=== PATIENT | female | born 1950 | race Caucasian/White ===

== ENCOUNTER → 2018-12-30 09:35 | Outpatient (CLI) | payer MEDICARE, OTHER, SELFPAY ==
--- NOTE | 2018-12-30 | DI.MG.S_ITS ---
BILATERAL DIGITAL SCREENING MAMMOGRAM 3D/2D WITH CAD: 12/30/2018 CLINICAL: Routine screening. Family history of breast cancer. Comparison is made to exams dated: 12/25/2017 mammogram, 12/13/2016 mammogram, 11/23/2015 mammogram, and 11/08/2014 mammogram - [facility]. The tissue of both breasts is heterogeneously dense. This may lower the sensitivity of mammography. Current study was also evaluated with a Computer Aided Detection (CAD) system. There is a mole marker on the right breast. No significant masses, calcifications, or other findings are seen in either breast. There has been no significant interval change. IMPRESSION: NEGATIVE There is no mammographic evidence of malignancy. A 1 year screening mammogram is recommended. This exam was interpreted at Station ID: [id number]. NOTE: For mammograms, a report in lay terms will be sent to the patient. Approximately 15% of breast malignancies will not be visualized mammographically. In the management of a palpable breast mass, a negative mammogram must not discourage biopsy of a clinically suspicious lesion. Electronically Signed By: Rey marti/rachel:12/30/2018 14:05:35 letter sent: Normal Exam ACR BI-RADS Category 1: Negative 3341F
== END ==
PROVIDERS: PCP Family Medicine; Visit Provider Family Medicine
DX: Z12.31 Encounter for screening mammogram for malignant neoplasm of breast (principal); Z80.3 Family history of malignant neoplasm of breast
CPT/HCPCS: 77063; 77067

== ENCOUNTER → 2019-07-29 07:36 | Outpatient (CLI) | payer MEDICARE, OTHER, SELFPAY ==
[2019-07-29 08:35] LABS: Add Manual Diff / Slide Review NO; Basophils Absolute Auto 100 /uL (0-100); Basophils Percent Auto 0.9 % (0-2); Eosinophils Absolute Auto 100 /uL (0-450); Eosinophils Percent Auto 1.3 % (2-4); Hemoglobin 13.6 g/dL (12.0-16.0); Lymphocytes Absolute Auto 3400 /uL (1100-4500); Lymphocytes Percent Auto 52.8 % (25-40); Mean Corpuscular HGB Conc 33.9 % (30-36); Mean Corpuscular Volume 94.3 fL (80-100); Monocytes Absolute Auto 600 /uL (0-900); Monocytes Percent Auto 8.8 % (3-14); Neutrophils Absolute Auto 2300 /uL (1500-7000); Neutrophils Percent Auto 36.2 % (50-75); Platelet Count 288 X10^3/uL (150-400); Red Blood Cell Count 4.24 X10^6/uL (4.0-5.2); Red Cell Distribution Width 12.8 % (11.6-14.8); White Blood Cell Count 6.5 X10^3/uL (4.5-11.0)
[2019-07-29 08:47] LABS: Alanine Aminotransferase 20 IU/L (9-52); Albumin 4.7 g/dL (3.5-5.0); Albumin Globulin Ratio 1.3 (1.0-2.8); Alkaline Phosphatase 50 U/L (38-126); Aspartate Aminotransferase 38 IU/L (14-36); Bilirubin Total 0.9 mg/dL (0.2-1.3); Blood Urea Nitrogen 20 mg/dL (7-17); Calcium 10.2 mg/dL (8.4-10.2); Carbon Dioxide 33 mmol/L (22-32); Chloride 98 mmol/L (98-107); Cholesterol 256 mg/dL (140-199); Estimated Glomerular Filt Rate > 60.0 mL/min (>60); Globulin 3.7 g/dL (1.7-4.1); Glucose 104 mg/dL (80-110); HDL Cholesterol 59 mg/dL (40-60); HEMOLYSIS < 15 (0-50); LDL Cholesterol Calculated 175 mg/dL (<100); Sodium 140 mmol/L (137-145); Total Protein 8.4 g/dL (6.3-8.2); Triglycerides 109 mg/dL (35-150)
[2019-07-29 09:36] LABS: Thyroid Stimulating Hormone 3.69 uIU/mL (0.47-4.68)
== END ==
PROVIDERS: PCP Family Medicine; Visit Provider Family Medicine
DX: E78.2 Mixed hyperlipidemia (principal); I10 Essential (primary) hypertension
CPT/HCPCS: 36415; 80053; 80061; 84443; 85025

== ENCOUNTER → 2020-01-06 10:58 | Outpatient (CLI) | payer MEDICARE, OTHER, SELFPAY ==
[2020-01-08 08:11] LABS: COVID19 Sendout Not Detected (Not Detected)
== END ==
PROVIDERS: PCP Family Medicine; Visit Provider Family Medicine
DX: R05 Cough (principal)
CPT/HCPCS: 87635

== ENCOUNTER → 2020-03-07 11:19 | Outpatient (CLI) | payer MEDICARE, OTHER, SELFPAY ==
--- NOTE | 2020-03-07 | DI.MG.S_ITS ---
BILATERAL DIGITAL SCREENING MAMMOGRAM 3D/2D WITH CAD: 03/07/2020 CLINICAL: Routine screening. Family history of breast cancer. Comparison is made to exams dated: 12/30/2018 mammogram, 12/25/2017 mammogram, and 12/13/2016 mammogram - [facility]. There are scattered fibroglandular elements in both breasts. Current study was also evaluated with a Computer Aided Detection (CAD) system. There is a mole marker on the right breast. No significant masses, calcifications, or other findings are seen in either breast. There has been no significant interval change. IMPRESSION: NEGATIVE There is no mammographic evidence of malignancy. A 1 year screening mammogram is recommended. This exam was interpreted at Station ID: [id number]. NOTE: For mammograms, a report in lay terms will be sent to the patient. Approximately 15% of breast malignancies will not be visualized mammographically. In the management of a palpable breast mass, a negative mammogram must not discourage biopsy of a clinically suspicious lesion. Electronically Signed By: Osman andrews/rachel:03/07/2020 15:03:39 letter sent: Normal Exam ACR BI-RADS Category 1: Negative 3341F
== END ==
PROVIDERS: PCP Family Medicine; Referring Provider Family Medicine; Visit Provider Family Medicine
DX: Z12.31 Encounter for screening mammogram for malignant neoplasm of breast (principal); Z80.3 Family history of malignant neoplasm of breast
CPT/HCPCS: 77063; 77067

== ENCOUNTER → 2020-03-22 08:56 | Outpatient (CLI) | payer MEDICARE, OTHER, SELFPAY ==
[2020-03-22 10:38] LABS: BUN Creatinine Ratio 16.7 (6-22); Blood Urea Nitrogen 15 mg/dL (7-17); Calcium 10.3 mg/dL (8.4-10.2); Carbon Dioxide 31 mmol/L (22-32); Chloride 98 mmol/L (98-107); Cholesterol 234 mg/dL (140-199); Estimated Glomerular Filt Rate > 60.0 mL/min (>60); Glucose 88 mg/dL (80-110); HDL Cholesterol 57 mg/dL (40-60); HEMOLYSIS < 15 (0-50); LDL Cholesterol Calculated 151 mg/dL (<100); Sodium 136 mmol/L (137-145); Triglycerides 128 mg/dL (35-150)
== END ==
PROVIDERS: PCP Family Medicine; Referring Provider Family Medicine; Visit Provider Family Medicine
DX: E78.2 Mixed hyperlipidemia (principal); I10 Essential (primary) hypertension
CPT/HCPCS: 36415; 80048; 80061

== ENCOUNTER → 2020-06-01 12:40 | Outpatient (CLI) | payer MEDICARE, OTHER, SELFPAY ==
[2020-06-01 13:23] LABS: Cholesterol 199 mg/dL (140-199); HDL Cholesterol 79 mg/dL (40-60); LDL Cholesterol Calculated 98 mg/dL (<100); Triglycerides 111 mg/dL (35-150)
== END ==
PROVIDERS: PCP Family Medicine; Referring Provider Family Medicine; Visit Provider Family Medicine
DX: E78.2 Mixed hyperlipidemia (principal)
CPT/HCPCS: 36415; 80061

== ENCOUNTER → 2020-09-23 10:40 | Outpatient (CLI) | payer MEDICARE, OTHER, SELFPAY ==
[2020-09-23 12:03] LABS: COVID19 -Nasal RAPID Negative (Negative)
== END ==
PROVIDERS: PCP Family Medicine; Visit Provider Registered Nurse
DX: R05 Cough (principal); R51.9 Headache, unspecified; R53.83 Other fatigue
CPT/HCPCS: 87635

== ENCOUNTER → 2021-03-10 08:26 | Outpatient (CLI) | payer MEDICARE, OTHER, SELFPAY ==
--- NOTE | 2021-03-10 | DI.MG.S_ITS ---
BILATERAL DIGITAL SCREENING MAMMOGRAM 3D/2D WITH CAD: 03/10/2021 CLINICAL: Routine screening. Family history of breast cancer. Comparison is made to exams dated: 03/07/2020 mammogram, 12/30/2018 mammogram, and 12/25/2017 mammogram - [facility]. There are scattered fibroglandular elements in both breasts. Current study was also evaluated with a Computer Aided Detection (CAD) system. There is a mole marker on the right breast. No significant masses, calcifications, or other findings are seen in either breast. There has been no significant interval change. IMPRESSION: NEGATIVE There is no mammographic evidence of malignancy. A 1 year screening mammogram is recommended. This exam was interpreted at Station ID: [id number]. NOTE: For mammograms, a report in lay terms will be sent to the patient. Approximately 15% of breast malignancies will not be visualized mammographically. In the management of a palpable breast mass, a negative mammogram must not discourage biopsy of a clinically suspicious lesion. Electronically Signed By: Wil bennett/rachel:03/10/2021 09:00:12 letter sent: Normal Exam ACR BI-RADS Category 1: Negative 3341F
== END ==
PROVIDERS: PCP Family Medicine; Referring Provider Family Medicine; Visit Provider Family Medicine
DX: Z12.31 Encounter for screening mammogram for malignant neoplasm of breast (principal)
CPT/HCPCS: 77063; 77067

== ENCOUNTER → 2022-04-16 09:45 | Outpatient (CLI) | payer MEDICARE, OTHER, SELFPAY ==
--- NOTE | 2022-04-16 09:47 | DI.MG.S_ITS ---
BILATERAL DIGITAL SCREENING MAMMOGRAM 3D/2D WITH CAD: 04/16/2022 CLINICAL: Routine screening. Comparison is made to exams dated: 03/10/2021 mammogram, 03/07/2020 mammogram, and 12/30/2018 mammogram - . There are scattered fibroglandular elements in both breasts. Current study was also evaluated with a Computer Aided Detection (CAD) system. No significant masses, calcifications, or other findings are seen in either breast. There has been no significant interval change. IMPRESSION: NEGATIVE There is no mammographic evidence of malignancy. A 1 year screening mammogram is recommended. Based on the Tyrer Cuzick model (a risk assessment model) the patient's lifetime risk is 4.1% and her 10 year risk is 3.1%. According to the ACR, ACS, and NCCN guidelines, an annual breast MRI exam along with mammogram is recommended if the patient's lifetime risk is 20% or greater. This exam was interpreted at Station ID: [id number]. NOTE: For mammograms, a report in lay terms will be sent to the patient. Approximately 15% of breast malignancies will not be visualized mammographically. In the management of a palpable breast mass, a negative mammogram must not discourage biopsy of a clinically suspicious lesion. Electronically Signed By: Wil bennett/rachel:04/16/2022 11:11:37 letter sent: Normal Exam ACR BI-RADS Category 1: Negative 3341F
== END ==
PROVIDERS: PCP Family Medicine; Referring Provider Family Medicine; Visit Provider Family Medicine
DX: Z12.31 Encounter for screening mammogram for malignant neoplasm of breast (principal)
CPT/HCPCS: 77063; 77067

== ENCOUNTER → 2022-06-28 08:13 | Outpatient (CLI) | payer MEDICARE, OTHER, SELFPAY ==
[2022-06-28 10:16] LABS: Add Manual Diff / Slide Review NO; Basophils Absolute Auto 0 /uL (0-100); Basophils Percent Auto 0.7 % (0-2); Eosinophils Absolute Auto 100 /uL (0-450); Hematocrit 36.5 % (36-46); Hemoglobin 12.2 g/dL (12.0-16.0); Lymphocytes Absolute Auto 2300 /uL (1100-4500); Lymphocytes Percent Auto 35.3 % (25-40); Mean Corpuscular HGB Conc 33.4 % (30-36); Mean Corpuscular Hemoglobin 31.2 PG (26-34); Mean Corpuscular Volume 93.2 fL (80-100); Monocytes Absolute Auto 600 /uL (0-900); Monocytes Percent Auto 9.4 % (3-14); Neutrophils Absolute Auto 3400 /uL (1500-7000); Neutrophils Percent Auto 52.6 % (50-75); Platelet Count 254 X10^3/uL (150-400); Red Blood Cell Count 3.92 X10^6/uL (4.0-5.2); Red Cell Distribution Width 13.2 % (11.6-14.8); White Blood Cell Count 6.4 X10^3/uL (4.5-11.0)
[2022-06-28 10:56] LABS: Alanine Aminotransferase 29 IU/L (<35); Albumin 4.2 g/dL (3.5-5.0); Albumin Globulin Ratio 1.2 (1.0-2.8); Alkaline Phosphatase 51 U/L (38-126); Aspartate Aminotransferase 32 IU/L (14-36); BUN Creatinine Ratio 14.5 (6-22); Bilirubin Total 0.8 mg/dL (0.2-1.3); Blood Urea Nitrogen 12 mg/dL (7-17); Calcium 9.4 mg/dL (8.4-10.2); Carbon Dioxide 27 mmol/L (22-32); Chloride 103 mmol/L (98-107); Cholesterol 229 mg/dL (140-199); Estimated Glomerular Filt Rate > 60 mL/min (>60); Globulin 3.6 g/dL (1.7-4.1); Glucose 96 mg/dL (80-110); HDL Cholesterol 67 mg/dL (40-60); HEMOLYSIS < 15 (0-50); LDL Cholesterol Calculated 141 mg/dL (<100); Potassium 4.6 mmol/L (3.4-5.1); Sodium 140 mmol/L (137-145); Total Protein 7.8 g/dL (6.3-8.2); Triglycerides 105 mg/dL (35-150)
[2022-06-28 11:14] LABS: TSH w/ Reflex to FT4 2.34 uIU/mL (0.47-4.68)
== END ==
PROVIDERS: PCP Family Medicine; Referring Provider Family Medicine; Visit Provider Family Medicine
DX: E78.2 Mixed hyperlipidemia (principal); I10 Essential (primary) hypertension
CPT/HCPCS: 36415; 80053; 80061; 84443; 85025

== ENCOUNTER → 2022-11-22 12:13 | Outpatient (CLI) | payer MEDICARE, OTHER, SELFPAY ==
[2022-11-22 13:01] LABS: Influenza A - CEPHEID Flu A NEGATIVE (NEGATIVE); Influenza B - CEPHEID Flu B NEGATIVE (NEGATIVE); Respiratory Syncytial Virus Negative (Negative)
[2022-11-22 13:03] LABS: COVID-19 CEPHEID 4-PLEX PCR Negative (Negative)
== END ==
PROVIDERS: PCP Family Medicine; Visit Provider Student in an Organized Health Care Education/Training Program
DX: R05.1 Acute cough (principal); Z20.822 Contact with and (suspected) exposure to COVID-19
CPT/HCPCS: 0241U

== ENCOUNTER → 2023-05-06 07:58 | Outpatient (CLI) | payer MEDICARE, OTHER, SELFPAY ==
--- NOTE | 2023-05-06 | DI.MG.S_ITS ---
BILATERAL DIGITAL SCREENING MAMMOGRAM 3D/2D WITH CAD: 05/06/2023 CLINICAL: Routine screening. Family history of breast cancer. Comparison is made to exams dated: 04/16/2022 mammogram, 03/10/2021 mammogram, and 03/07/2020 mammogram - [facility]. There are scattered areas of fibroglandular density in both breasts (category b / 25%-50% glandular tissue). Current study was also evaluated with a Computer Aided Detection (CAD) system. No significant masses, calcifications, or other findings are seen in either breast. There has been no significant interval change. IMPRESSION: NEGATIVE There is no mammographic evidence of malignancy. A 1 year screening mammogram is recommended. Based on the Tyrer Cuzick model (a risk assessment model) the patient's lifetime risk is 3.8% and her 10 year risk is 3.1%. According to the ACR, ACS, and NCCN guidelines, an annual breast MRI exam along with mammogram is recommended if the patient's lifetime risk is 20% or greater. This exam was interpreted at Station ID: [id number]. NOTE: For mammograms, a report in lay terms will be sent to the patient. Approximately 15% of breast malignancies will not be visualized mammographically. In the management of a palpable breast mass, a negative mammogram must not discourage biopsy of a clinically suspicious lesion. Electronically Signed By: Leila lee/rachel:05/06/2023 12:24:54 ACR BI-RADS Category 1: Negative 3341F
== END ==
PROVIDERS: PCP Family Medicine; Referring Provider Family Medicine; Visit Provider Family Medicine
DX: Z12.31 Encounter for screening mammogram for malignant neoplasm of breast (principal); Z80.3 Family history of malignant neoplasm of breast
CPT/HCPCS: 77063; 77067

== ENCOUNTER → 2023-07-29 11:31 | Outpatient (CLI) | payer MEDICARE, OTHER, SELFPAY ==
[2023-07-29 12:53] LABS: Add Manual Diff / Slide Review NO; Basophils Absolute Auto 100 /uL (0-100); Basophils Percent Auto 0.9 % (0-2); Eosinophils Absolute Auto 200 /uL (0-450); Eosinophils Percent Auto 3.2 % (2-4); Hemoglobin 12.9 g/dL (12.0-16.0); Lymphocytes Absolute Auto 1900 /uL (1100-4500); Lymphocytes Percent Auto 30.9 % (25-40); Mean Corpuscular HGB Conc 33.9 % (30-36); Mean Corpuscular Hemoglobin 31.7 PG (26-34); Mean Corpuscular Volume 93.4 fL (80-100); Monocytes Absolute Auto 800 /uL (0-900); Monocytes Percent Auto 12.1 % (3-14); Neutrophils Absolute Auto 3300 /uL (1500-7000); Neutrophils Percent Auto 52.9 % (50-75); Platelet Count 268 X10^3/uL (150-400); Red Blood Cell Count 4.07 X10^6/uL (4.0-5.2); White Blood Cell Count 6.3 X10^3/uL (4.5-11.0)
[2023-07-29 13:36] LABS: Alanine Aminotransferase 21 IU/L (<35); Albumin 4.3 g/dL (3.5-5.0); Albumin Globulin Ratio 1.2 (1.0-2.8); Alkaline Phosphatase 49 U/L (38-126); Aspartate Aminotransferase 31 IU/L (14-36); BUN Creatinine Ratio 21.5 (6-22); Bilirubin Total 0.4 mg/dL (0.2-1.3); Blood Urea Nitrogen 20 mg/dL (7-17); Calcium 10.2 mg/dL (8.4-10.2); Carbon Dioxide 29 mmol/L (22-32); Chloride 99 mmol/L (98-107); Cholesterol 202 mg/dL (140-199); Estimated Glomerular Filt Rate > 60 mL/min (>60); Globulin 3.5 g/dL (1.7-4.1); Glucose 94 mg/dL (80-110); HDL Cholesterol 59 mg/dL (40-60); HEMOLYSIS < 15 (0-50); LDL Cholesterol Calculated 111 mg/dL (<100); Potassium 4.6 mmol/L (3.4-5.1); Sodium 137 mmol/L (137-145); Total Protein 7.8 g/dL (6.3-8.2); Triglycerides 161 mg/dL (35-150)
[2023-07-29 15:02] LABS: Creatinine Urine Random 363.8 mg/dL; Microalbumi Creatinin Ratio Ur 10.9 ug/mg CR (<30)
== END ==
PROVIDERS: PCP Family Medicine; Referring Provider Family Medicine; Visit Provider Family Medicine
DX: I10 Essential (primary) hypertension (principal); E78.2 Mixed hyperlipidemia
CPT/HCPCS: 36415; 80053; 80061; 82043; 82570; 85025

== ENCOUNTER → 2023-08-12 18:02 | Outpatient (CLI) | payer MEDICARE, OTHER, SELFPAY ==
--- NOTE | 2023-08-12 18:05 | DI.RAD.S_ITS ---
PROCEDURE: XR CHEST 2V INDICATIONS: Cough TECHNIQUE: 2 views of the chest were acquired. COMPARISON: [facility], , CHEST 1 VIEW, 10/14/2013, 13:59. FINDINGS: Surgical changes and devices: None. Lungs and pleura: Lungs are clear. No pleural effusions or pneumothorax. Mediastinum: Mediastinal contours are normal. Heart size is normal. Bones and chest wall: No suspicious bony abnormalities. Soft tissues appear unremarkable. IMPRESSION: No acute cardiopulmonary abnormality is seen. Dictated by: Svitlana Hutchins M.D. on 08/13/2023 at 11:54 Approved by: Svitlana Hutchins M.D. on 08/13/2023 at 11:54
== END ==
PROVIDERS: PCP Family Medicine; Referring Provider Nurse Practitioner Family; Visit Provider Nurse Practitioner Family
DX: R05.9 Cough, unspecified (principal)
CPT/HCPCS: 71046

== ENCOUNTER 2023-10-17 07:44 | Day surgery (SDC) | payer MEDICARE, OTHER, SELFPAY ==
--- NOTE | 2023-10-17 | PATH_ITS ---
[facility] Accession Number: [id number] No. of containers..01 Tissue . 01 Material submitted: . rectum - RECTAL POLYPS . 01 Diagnosis: Rectal Polyps, Biopsy: Hyperplastic polyps. [facility] 10/22/2023 1040 Local . 01 Electronically signed: . Alexandra Nur MD, Pathologist NPI- [id number] . 01 Gross description: . RECTAL POLYPS: Received in formalin is 3 fragment(s) of palmer, soft tissue measuring 0.5 x 0.2 x 0.1 cm to 0.3 x 0.2 x 0.1 cm submitted entirely in 1 cassette(s) /AAY 10/18/2023 0444 Local . 01 Pathologist provided ICD-10: D12.8 . 01 CPT . 831949 Specimen Comment: A courtesy copy of this report has been sent to [phone] Performed at: 01 [facility] [address] [place] [address] [id number] MD Arun Eaton MD Phone: [phone]
[2023-10-17] MEDS: LACTATED RINGERS 1,000 ML 100 ML IV (08:13)
[2023-10-17 08:14] VITALS: BP 176/90; PULSE 81; RESP 16; TEMP 36.2; O2SAT 99; BMI 25.6
--- NOTE | 2023-10-17 08:44 | PM.HP.1 ---
History of Present Illness History of Present Illness Date Patient Seen: 10/17/23 Time Patient Seen: 08:44 Chief complaint: Screening Colonoscopy Narrative: Yuliet is a 73-year-old woman here for colonoscopy. Her last was in 2017 and she believes that no polyps were removed. She thinks she may have had some polyps removed on a colonoscopy prior to 2016 but they turned out to be ?nothing?. No family history of colon cancer. [facility] Medical History Bilateral arm fractures (01/19/18) Bronchitis (~07/08/18) Chest pain (10/22/13) Closed fracture of distal ends of radius and ulna, bilateral Colon polyps (09/12/17) Diverticulosis of colon (09/12/17) Insomnia Measles (1956) MRSA infection (2008) Mumps (1954) Osteoarthritis Ovarian cyst (1985) Respiratory infection Surgical History Anesthesia History of colonoscopy with polypectomy (09/12/17) History of open reduction and internal fixation (ORIF) procedure (01/19/18) S/P PAUL-BSO (total abdominal hysterectomy and bilateral salpingo-oophorectomy) (~1989) Family History Brother Cancer Melanoma Father Heart disease Hypertension Congestive heart failure Grandfather Cardiac failure Respiratory failure Grandmother Colon cancer Mother Emphysema of lung Grandfather Stroke Grandmother No problems noted. Social History household members: none Smoking Status: Never smoker second hand exposure: No alcohol intake: current substance use type: does not use Meds Home Medications and Allergies Home Medications Medication Instructions Recorded Confirmed Type [VITAMIN D] Q DAY ##0 01/28/12 08/12/23 History melatonin 10 mg tablet 10 mg PO BEDTIME PRN sleep #1 tab 11/03/20 10/17/23 Rx hydrochlorothiazide 25 mg tablet 25 mg PO Q DAY #90 tabs 04/12/22 10/17/23 Rx atorvastatin 20 mg tablet 20 mg PO DAILY #90 tabs 07/30/23 10/17/23 Rx albuterol sulfate 90 mcg/actuation 2 puff inhalation Q6H PRN 08/12/23 10/17/23 Rx aerosol inhaler shortness of breath or wheezing #6.7 grams citalopram 40 mg tablet See Rx Instructions .Route 09/02/23 10/17/23 Rx .COMPLEX #90 tabs albuterol sulfate 90 mcg/actuation 2 puff inhalation Q6H PRN wheezing 10/17/23 10/17/23 History aerosol inhaler Allergies Allergy/AdvReac Type Severity Reaction Status Date / Time No Known Drug Allergies Allergy Verified 10/17/23 07:52 Exam Vital Signs (past 8 hours): - 10/17/23 08:14 Temperature 97.1 F L Pulse Rate 81 Respiratory Rate 16 Blood Pressure 176/90 H Pulse Oximetry 99 Oxygen Delivery Method Room Air Oxygen Delivery Method Room Air Const General: healthy appearing and No acute distress Assessment & Plan Assessment and plan (1) Colon cancer screening: Status: Acute Plan We reviewed the risks and benefits of colonoscopy for colon cancer screening and she would like to proceed.
--- NOTE | 2023-10-17 09:29 | P.OP.COLON_ITS ---
Operative Date/Time/Diagnoses Date of procedure: 10/17/23 Time of procedure: 09:29 Pre-op diagnosis: Colon cancer screening Post-op diagnosis: same Procedure & Clinicians Study performed: Colonoscopy Same procedure as scheduled: Yes Surgeon: Florencio Casas Procedure Notes Procedure in detail: Surgeon: Florencio Casas MD Anesthesia: Simone Salcedo D.O. Procedure: The patient was brought to the endoscopy suite, placed in left lateral decubitus position. The patient was connected to monitoring devices. A time-out was performed. Sedation was administered. Once the patient was adequately sedated, a digital rectal exam was performed and was normal. The scope was then inserted and advanced to the cecum where the appendiceal orifice was identified and photographed. The scope was then slowly withdrawn over greater than 6 minutes. The mucosa was thoroughly inspected. There were 2 sma ll polyps in the rectum removed with a cold Jumbo forceps and sent together as ?rectal polyps?. The scope was retroflexed in the rectum. No other abnormalities were seen. The scope was straightened and removed. The patient was awakened and brought to recovery. Scope withdrawal time: 12 minutes Sedation time: 20 minutes EBL: 3 mL Findings: 2 small rectal polyps Post-procedure Disposition: PACU
[2023-10-17 09:32] VITALS: BP 134/69; PULSE 62; RESP 18; TEMP 36.4; O2SAT 94
[2023-10-17 09:36] VITALS: BP 127/66; PULSE 87; RESP 16; O2SAT 99
[2023-10-17 09:41] VITALS: BP 120/64; PULSE 62; RESP 18; O2SAT 100
[2023-10-17 09:45] VITALS: BP 142/60; PULSE 55; RESP 16; TEMP 36.4; O2SAT 100
[2023-10-17 09:50] VITALS: BP 146/69; PULSE 57; RESP 16; O2SAT 100
== END 2023-10-17 10:09 | disposition home or self-care (01) ==
PROVIDERS: PCP Family Medicine; Referring Provider Surgery; Visit Provider Surgery
PROC: 0DJD8ZZ Inspection of Lower Intestinal Tract, Via Natural or Artificial Opening Endoscopic (ICD-10-PCS; CPT 45378; principal; 2023-10-17 08:45)
DX: Z12.11 Encounter for screening for malignant neoplasm of colon (principal); K62.1 Rectal polyp
CPT/HCPCS: 45380; J2704

== ENCOUNTER → 2024-05-19 15:06 | Outpatient (CLI) | payer MEDICARE, OTHER, SELFPAY ==
--- NOTE | 2024-05-19 15:07 | DI.MG.S_ITS ---
BILATERAL DIGITAL SCREENING MAMMOGRAM 3D/2D WITH CAD: 05/19/2024 CLINICAL: Routine screening. Family history of breast cancer. Comparison is made to exams dated: 05/06/2023 mammogram, 04/16/2022 mammogram, and 03/10/2021 mammogram - [facility]. There are scattered areas of fibroglandular density in both breasts (category b / 25%-50% glandular tissue). Current study was also evaluated with a Computer Aided Detection (CAD) system. No significant masses, calcifications, or other findings are seen in either breast. There has been no significant interval change. IMPRESSION: NEGATIVE There is no mammographic evidence of malignancy. A 1 year screening mammogram is recommended. Based on the Tyrer Cuzick model (a risk assessment model) the patient's lifetime risk is 3.6% and her 10 year risk is 3.2%. According to the ACR, ACS, and NCCN guidelines, an annual breast MRI exam along with mammogram is recommended if the patient's lifetime risk is 20% or greater. This exam was interpreted at Station ID: [id number]. NOTE: For mammograms, a report in lay terms will be sent to the patient. Approximately 15% of breast malignancies will not be visualized mammographically. In the management of a palpable breast mass, a negative mammogram must not discourage biopsy of a clinically suspicious lesion. Electronically Signed By: Svitlana mckeon/rachel:05/20/2024 16:11:14 letter sent: Normal Exam ACR BI-RADS Category 1: Negative 3341F
== END ==
PROVIDERS: PCP Family Medicine; Referring Provider Family Medicine; Visit Provider Family Medicine
DX: Z12.31 Encounter for screening mammogram for malignant neoplasm of breast (principal); Z80.3 Family history of malignant neoplasm of breast; R92.323 Mammographic fibroglandular density, bilateral breasts
CPT/HCPCS: 77063; 77067

== ENCOUNTER 2024-07-17 10:16 | Emergency (ER) | payer MEDICARE, OTHER, SELFPAY ==
[2024-07-17] VITALS (22 sets, daily range): BP systolic 124–179; BP diastolic 65–84; PULSE 52–70; RESP 9–22; TEMP 36.6; O2SAT 94–100; BMI 26.5
--- NOTE | 2024-07-17 10:20 | DI.RAD.S_ITS ---
PROCEDURE: XR CHEST 1V INDICATIONS: chest pain TECHNIQUE: One view of the chest was acquired. COMPARISON: [facility], CR, XR CHEST 2V, 08/12/2023, 18:09. FINDINGS: Surgical changes and devices: None. Lungs and pleura: Lungs are clear. No pleural effusions or pneumothorax. Mediastinum: Mediastinal contours appear normal. Heart size is normal. Bones and chest wall: No suspicious bony lesions. Overlying soft tissues appear unremarkable. IMPRESSION: No acute pulmonary process. Dictated by: Fiona Rice M.D. on 07/17/2024 at 11:05 Approved by: Fiona Rice M.D. on 07/17/2024 at 11:05
--- NOTE | 2024-07-17 10:23 | ED.SYNCOPE ---
HPI - Syncope General Chief Complaint: Syncope Stated Complaint: Syncope and diarrhea Time Seen by Provider: 07/17/24 10:19 History of Present Illness HPI narrative: 74-year-old female had recent loose stools, was on the toilet sitting at home and passed out while sitting on the toilet, fell forward striking her face onto the ground, complaining of pain to her neck, upper mid back, anterior abdomen, low pelvis. Denies injuries to right upper extremity, left upper extremity, right lower extremity, left lower extremity, denies hip pain specifically when asked. He is not on blood thinner medications. She was transported in cervical spine long board spinal immobilization arriving by EMS, having been given fentanyl EN route, pain is decreased. No incontinence urine or stool. She denies chest pain or shortness of breath. No shaking activity before after fall from toilet event. No recent blood in stools. No black stools. Related Data Home Medications Medication Instructions Recorded Confirmed [VITAMIN D] Q DAY ##0 01/28/12 08/12/23 albuterol sulfate 90 mcg/actuation 2 puff inhalation Q6H PRN wheezing 10/17/23 10/17/23 aerosol inhaler Previous Rx's Medication Instructions Recorded melatonin 10 mg tablet 10 mg PO BEDTIME PRN sleep #1 tab 11/03/20 atorvastatin 20 mg tablet 20 mg PO DAILY #90 tabs 07/30/23 albuterol sulfate 90 mcg/actuation 2 puff inhalation Q6H PRN 08/12/23 aerosol inhaler shortness of breath or wheezing #6.7 grams citalopram 40 mg tablet 40 mg PO DAILY #90 tabs 11/27/23 hydrochlorothiazide 25 mg tablet 25 mg PO Q DAY #90 tabs 12/17/23 methocarbamol 500 mg tablet 500 mg PO TID 7 days #21 tabs 07/17/24 Allergies Allergy/AdvReac Type Severity Reaction Status Date / Time No Known Drug Allergies Allergy Verified 10/17/23 07:52 Review of Systems Review of Systems Narrative: see HPI Patient History Medical History Bilateral arm fractures (01/19/18) Bronchitis (~07/08/18) Chest pain (10/22/13) Closed fracture of distal ends of radius and ulna, bilateral Colon polyps (09/12/17) Diverticulosis of colon (09/12/17) Insomnia Measles (1956) MRSA infection (2008) Mumps (1954) Osteoarthritis Ovarian cyst (1985) Respiratory infection Surgical History Anesthesia History of colonoscopy with polypectomy (09/12/17) History of open reduction and internal fixation (ORIF) procedure (01/19/18) S/P PUAL-BSO (total abdominal hysterectomy and bilateral salpingo-oophorectomy) (~1989) Family History Brother Cancer Melanoma Father Heart disease Hypertension Congestive heart failure Grandfather Cardiac failure Respiratory failure Grandmother Colon cancer Mother Emphysema of lung Grandfather Stroke Grandmother No problems noted. Social History household members: none Smoking Status: Never smoker second hand exposure: No alcohol intake: current substance use type: does not use Smoking Status: Never smoker alcohol intake frequency: 0-2 drinks per day Substance Use Type: does not use Exam Narrative Exam Narrative: GENERAL: Well-developed patient, in mild distress. HEAD: Atraumatic. Normocephalic. EYES: Pupils equal round and reactive. Extraocular motions intact. No scleral icterus. No injection or drainage. ENT: Nose without bleeding, purulent drainage. Throat without erythema, tonsillar hypertrophy or exudate. Airway patent. NECK: Trachea midline. Non tender CARDIOVASCULAR: Regular rate and rhythm without murmurs, gallops, or rubs. RESPIRATORY: Clear to auscultation. Breath sounds equal bilaterally. No wheezes, rales, or rhonchi. GASTROINTESTINAL: Abdomen soft, non-tender, nondistended. EXTREMITIES: No edema or joint tenderness. BACK: Nontender without deformity or crepitance. No flank tenderness. NEURO: AOx3. Motor functions grossly nonfocal SKIN: No rash or erythema of visible areas Initial Vital Signs Initial Vital Signs: Vital Signs Pulse Rate 58 L 07/17/24 10:18 Course Orders Ordered: ED Orders 07/17/24 12:25 Troponin I Stat 07/17/24 13:20 Urinalysis and Microscopic Stat Discontinued Medications Sodium Chloride (Normal Saline 0.9%) 1,000 mls @ 500 mls/hr IV BOLUS ONE Stop: 07/17/24 12:21 Last Infusion: 07/17/24 14:50 Dose: Infused Documented By: Admin: 07/17/24 13:25 Dose: 500 mls/hr Documented By: ASHLIE Ketorolac Tromethamine (Ketorolac 30 Mg/Ml Vial) 15 mg IV NOW ONE Stop: 07/17/24 10:52 Last Admin: 07/17/24 10:59 Dose: 15 mg Documented By: MASON Vital Signs Vital signs: Vital Signs - 8 hr 07/17/24 12:30 07/17/24 13:00 07/17/24 13:05 Pulse Rate 60 56 L 57 L Pulse Rate [Orthostatic Lying] Pulse Rate [Orthostatic Sitting] Pulse Rate [Orthostatic Standing] Respiratory Rate 9 L 22 19 Blood Pressure Blood Pressure [Orthostatic Lying] Blood Pressure [Orthostatic Sitting] Blood Pressure [Orthostatic Standing] Pulse Oximetry 97 100 100 Oxygen Delivery Method Room Air 07/17/24 13:05 07/17/24 13:06 07/17/24 13:06 Pulse Rate 66 Pulse Rate [Orthostatic Lying] Pulse Rate [Orthostatic Sitting] Pulse Rate [Orthostatic Standing] Respiratory Rate Blood Pressure 153/70 H 138/70 Blood Pressure [Orthostatic Lying] Blood Pressure [Orthostatic Sitting] Blood Pressure [Orthostatic Standing] Pulse Oximetry 99 Oxygen Delivery Method 07/17/24 13:09 07/17/24 13:30 07/17/24 13:31 Pulse Rate 59 L 57 L Pulse Rate [Orthostatic Lying] 57 L Pulse Rate [Orthostatic Sitting] 66 Pulse Rate [Orthostatic Standing] 70 Respiratory Rate 11 L 10 L Blood Pressure Blood Pressure [Orthostatic Lying] 153/70 H Blood Pressure [Orthostatic Sitting] 152/71 H Blood Pressure [Orthostatic Standing] 124/68 Pulse Oximetry 98 100 Oxygen Delivery Method Room Air 07/17/24 13:31 07/17/24 14:00 07/17/24 14:00 Pulse Rate 57 L Pulse Rate [Orthostatic Lying] Pulse Rate [Orthostatic Sitting] Pulse Rate [Orthostatic Standing] Respiratory Rate 15 Blood Pressure 168/72 H 164/70 H Blood Pressure [Orthostatic Lying] Blood Pressure [Orthostatic Sitting] Blood Pressure [Orthostatic Standing] Pulse Oximetry 97 Oxygen Delivery Method Room Air 07/17/24 14:30 07/17/24 14:30 07/17/24 14:57 Pulse Rate 54 L Pulse Rate [Orthostatic Lying] Pulse Rate [Orthostatic Sitting] Pulse Rate [Orthostatic Standing] Respiratory Rate Blood Pressure 157/70 H 165/75 H Blood Pressure [Orthostatic Lying] Blood Pressure [Orthostatic Sitting] Blood Pressure [Orthostatic Standing] Pulse Oximetry 99 Oxygen Delivery Method Room Air 07/17/24 14:57 07/17/24 14:59 07/17/24 14:59 Pulse Rate 58 L 62 Pulse Rate [Orthostatic Lying] Pulse Rate [Orthostatic Sitting] Pulse Rate [Orthostatic Standing] Respiratory Rate Blood Pressure 179/84 H Blood Pressure [Orthostatic Lying] Blood Pressure [Orthostatic Sitting] Blood Pressure [Orthostatic Standing] Pulse Oximetry 99 Oxygen Delivery Method Room Air 07/17/24 15:00 07/17/24 15:01 07/17/24 15:01 Pulse Rate 65 70 Pulse Rate [Orthostatic Lying] Pulse Rate [Orthostatic Sitting] Pulse Rate [Orthostatic Standing] Respiratory Rate 20 Blood Pressure 173/72 H Blood Pressure [Orthostatic Lying] Blood Pressure [Orthostatic Sitting] Blood Pressure [Orthostatic Standing] Pulse Oximetry Oxygen Delivery Method 07/17/24 15:04 07/17/24 15:09 07/17/24 15:09 Pulse Rate 59 L Pulse Rate [Orthostatic Lying] 60 Pulse Rate [Orthostatic Sitting] 63 Pulse Rate [Orthostatic Standing] 68 Respiratory Rate 15 Blood Pressure 168/75 H Blood Pressure [Orthostatic Lying] 165/75 H Blood Pressure [Orthostatic Sitting] 176/84 H Blood Pressure [Orthostatic Standing] 173/72 H Pulse Oximetry 100 Oxygen Delivery Method Room Air MDM - Syncope Lab Data Attestation: I reviewed the patient's lab results. Lab results narrative: White blood cell count 6700, hemoglobin 13, platelets adequate, CMP with normal electrolytes, normal liver functions, lipase normal. Initial troponin negative 07/17/24 10:21 07/17/24 10:21 Labs: Lab Results 07/17/24 07/17/24 07/17/24 Range/Units 10:21 12:25 13:20 WBC 6.7 (4.5-11.0) X10^3/uL RBC 4.19 (4.0-5.2) X10^6/uL Hgb 13.0 (12.0-16.0) g/dL Hct 39.0 (36-46) % MCV 93.1 (80-100) fL MCH 31.0 (26-34) PG MCHC 33.3 (30-36) % RDW 13.1 (11.6-14.8) % Plt Count 278 (150-400) X10^3/uL Neut % (Auto) 47.5 L (50-75) % Lymph % (Auto) 39.8 (25-40) % [place] % (Auto) 9.7 (3-14) % Eos % (Auto) 2.1 (2-4) % Baso % (Auto) 0.9 (0-2) % Neut # (Auto) 3200 (2564-9804) /uL Lymph # (Auto) 2700 (1305-6687) /uL [place] # (Auto) 700 (0-900) /uL Eos # (Auto) 100 (0-450) /uL Baso # (Auto) 100 (0-100) /uL Sodium 133 L (137-145) mmol/L Potassium 3.4 (3.4-5.1) mmol/L Chloride 98 (98-107) mmol/L Carbon Dioxide 30 (22-32) mmol/L BUN 20 H (7-17) mg/dL Creatinine 0.85 (0.52-1.04) mg/dL Estimated GFR > 60 (>60) mL/min BUN/Creatinine Ratio 23.5 H (6-22) Glucose 147 H (80-110) mg/dL Calcium 9.7 (8.4-10.2) mg/dL Total Bilirubin 0.6 (0.2-1.3) mg/dL AST 36 (14-36) IU/L ALT 25 (<35) IU/L Alkaline Phosphatase 55 (38-126) U/L Total Creatine Kinase 98 (30-135) U/L Troponin I < 0.012 < 0.012 (0.01-0.034) ng/mL Total Protein 7.8 (6.3-8.2) g/dL Albumin 4.1 (3.5-5.0) g/dL Globulin 3.7 (1.7-4.1) g/dL Albumin/Globulin Ratio 1.1 (1.0-2.8) Lipase 91 (23-300) U/L Urine Color Yellow Urine Appearance Clear Urine pH 8.5 H (4.5-8.0) Ur Specific [place] <=1.005 (1.000-1.035) Urine Protein Negative (Negative) Urine Glucose (UA) Negative (Negative) g/dL Urine Ketones Negative (NEGATIVE) Urine Occult Blood Negative (Negative) Urine Nitrate Negative (Negative) Urine Bilirubin Negative (NEGATIVE) Urine Urobilinogen 0.2 (0.2) E.U./dL Ur Leukocyte Esterase Negative (NEGATIVE) Urine RBC None seen (0-5/HPF) Urine WBC None seen (0-5/HPF) Ur Squamous Epith Cells 0-1 /hpf (0-5/HPF) Urine Bacteria None seen (None) Ur Culture Indicated? Cult not indicated Vol Urine Centrifuged 10ml (spun) Imaging Data Chest x-ray: Radiologist's Impression: [address] [address] XRay Report Signed Patient: Yuliet Edwards MR#: [id number] : 1950 Acct:[id number] Age/Sex: 74 / F Date of Service: 07/17/24 Loc: ED Accession Number: [id number] Procedure: XR chest 1V Ordering Provider: Ede Zapata MD PROCEDURE: XR CHEST 1V INDICATIONS: chest pain TECHNIQUE: One view of the chest was acquired. COMPARISON: [facility], , XR CHEST 2V, 08/12/2023, 18:09. FINDINGS: Surgical changes and devices: None. Lungs and pleura: Lungs are clear. No pleural effusions or pneumothorax. Mediastinum: Mediastinal contours appear normal. Heart size is normal. Bones and chest wall: No suspicious bony lesions. Overlying soft tissues appear unremarkable. IMPRESSION: No acute pulmonary process. Dictated by: Fiona Rice M.D. on 07/17/2024 at 11:05 Approved by: Fiona Rice M.D. on 07/17/2024 at 11:05 CT scan - head: Radiologist's Impression: [address] [address] [address] Scan Report Signed Patient: Yuliet Edwards MR#: [id number] : 1950 Acct:[id number] Age/Sex: 74 / F Date of Service: 07/17/24 Loc: ED Accession Number: [id number] Procedure: CT head/brain wo con Ordering Provider: Ede Zapata MD PROCEDURE: CT HEAD/BRAIN WO CON INDICATIONS: syncoipe, fell off toilet TECHNIQUE: Noncontrast 4.5 mm thick angled axial sections acquired from the foramen magnum to the vertex, with coronal and sagittal reformats. For radiation dose reduction, the following was used: automated exposure control, adjustment of mA and/or kV according to patient size. COMPARISON: None. FINDINGS: Image quality: Diagnostic. CSF spaces: Basal cisterns are patent. No extra-axial fluid collections. Ventricles are normal in size and shape. Brain: No midline shift. No intracranial masses or hemorrhage. Bob-white matter interface is normal. Age-appropriate atrophy and chronic ischemic change. Left 5 mm enlarged perivascular space para hippocampal cyst noted. Skull and face: Calvarium and visualized facial bones are intact, without suspicious lesions. Sinuses: Visualized sinuses and mastoids are clear. IMPRESSION: Age-appropriate atrophy without acute hemorrhage or mass effect. Approved by: Mani Pittman M.D. on 07/17/2024 at 10:26 CT - cervical spine: Radiologist's Impression: [place] [address] CT Scan Report Signed Patient: Yuliet Edwards MR#: [id number] : 1950 Acct:[id number] Age/Sex: 74 / F Date of Service: 07/17/24 Loc: ED Accession Number: [id number] Procedure: CT cervical spine wo con Ordering Provider: Ede Zapata MD PROCEDURE: CT CERVICAL SPINE WO CON INDICATIONS: neck pain after fall, syncope TECHNIQUE: Noncontrast 3 mm thick sections acquired from the skull base to the T4 level. Sagittal and coronal reformats were then constructed. For radiation dose reduction, the following was used: automated exposure control, adjustment of mA and/or kV according to patient size. COMPARISON: [facility], CT, CT HEAD/BRAIN WO CON, 07/17/2024, 10:54. FINDINGS: Image quality: This examination is somewhat limited by quantum mottle artifact. Bones: No fractures or dislocations. Visualized superior ribs are intact. There is [id number] disc space narrowing seen C3-C4, least moderate disc space narrowing seen at C4-C5 and C5-C6. There is moderate disc space narrowing seen C6-C7. At least moderate disc space narrowing can be seen at C7-T1. Post erected osteophytes are seen worst at C5-C6. Soft tissues: Prevertebral soft tissues are normal in thickness. No paravertebral hematomas. No apical pneumothoraces. IMPRESSION: Negative for cervical spine fracture. Multiple levels cervical spine degenerative change can be seen which are worst at C5-C6. Dictated by: Octavio Renteria M.D. on 07/17/2024 at 10:25 Approved by: Octavio Renteria M.D. on 07/17/2024 at 10:27 CT chest abdomen and pelvis with IV contrast: Radiologist's Impression: [place] [address] CT Scan Report Signed Patient: Yuliet Edwards MR#: [id number] : 1950 Acct:[id number] Age/Sex: 74 / F Date of Service: 07/17/24 Loc: ED Accession Number: [id number] Procedure: CT chest abd pel w con Ordering Provider: Ede Zapata MD PROCEDURE: CT CHEST ABD PEL W CON INDICATIONS: syncope, back pain abd pain TECHNIQUE: After the administration of intravenous contrast, 5 mm thick sections acquired from the lung apices to the symphysis. 5 mm coronal and sagittal reformats were performed, with additional 7 mm MIP reformats through the lungs. For radiation dose reduction, the following was used: automated exposure control, adjustment of mA and/or kV according to patient size. COMPARISON: None. FINDINGS: Image quality: Excellent. CHEST: Lower Neck: No enlarged lymph nodes. Thyroid: No thyroid nodules which require sonographic follow up, per consensus guidelines. Axillae: No enlarged lymph nodes. Chest Wall: Unremarkable. Lungs and Pleura: No pneumothorax or pleural effusions. Multiple solid pulmonary micro nodules. Index nodule measures 2 millimeters in the right upper lobe (series 6, image 155). Heart: Heart size is normal. No pericardial effusion. Thoracic Vessels: The aorta and pulmonary arteries demonstrate normal size. Mediastinum and Tatum: No enlarged lymph nodes. Esophagus: No wall thickening. No hiatal hernia. ABDOMEN: Liver: No solid mass. Gallbladder: No radiopaque gallstones or wall thickening. Biliary ducts: No biliary dilation. Pancreas: No ductal dilation. Spleen: Size is within normal limits. Adrenal Glands: No adrenal nodules. Kidneys and Ureters: No hydronephrosis. No solid mass. No complex renal cystic lesion which requires follow up. Punctate nonobstructing right-sided nephrolithiasis. Stomach and Bowel: Normal colonic caliber, without significant wall thickening. Peritoneum: No abnormal intraperitoneal fluid. No free air. Ventral Wall: No significant ventral hernia. Abdominal Nodes: No retroperitoneal or mesenteric adenopathy by size criteria. Vessels: Aorta and inferior vena cava are normal in size. PELVIS: Pelvic Organs: Unremarkable. Bladder: No bladder wall thickening, accounting for underdistention. Pelvic Nodes: No enlarged lymph nodes. Miscellaneous: No inguinal hernias are seen. Bones: No aggressive osseous abnormality. Degenerative disc disease of the lumbar spine. No significant spinal canal narrowing. IMPRESSION: No acute abnormality. No compression deformity. No significant spinal canal narrowing. Pulmonary micronodules. Consider 12 month follow-up if at high risk for developing lung cancer, per Fleischner Society guidelines. Dictated by: Best Babcock M.D. on 07/17/2024 at 11:38 Approved by: Best Babcock M.D. on 07/17/2024 at 11:44 ECG Data Attestation: I personally reviewed and interpreted this ECG as follows: Interpretation: Sinus bradycardia with rate of 59, no obvious ST segment elevation or depression changes. IL interval 178, QRS 92, QTC 479. MDM Narrative Medical decision making narrative: 74-year-old female had syncopal episode after recent stooling, while sitting on the toilet, face plant fall forward, complaint of pain to posterior neck, upper mid back, abdomen. EMS arrival, cervical collar and long board precautions. IV fentanyl given by EMS, some decreased discomfort. No incontinence. Possibly due to vasovagal episode, micturition syncope, defecation syncope, bradyarrhythmia, tachyarrhythmia, ACS, dehydration, electrolyte disorder, blood loss anemia, other. We will send EKG, troponin initial interval, CBC, CMP. Stool studies if she produces a specimen. IV fluid bolus. CT head noncontrast, CT cervical spine noncontrast, CT chest abdomen and pelvis with IV contrast. Logroll exam, no obvious posterior injuries, taken off inflatable long board. Still in cervical collar. CT head negative. CT cervical spine showed DJD changes. See radiology reports Cervical collar also removed, moves neck well. CT chest abdomen and pelvis showed no acute trauma findings, no mention of any aortic issues, micro pulmonary nodules noted. Copy of report given to patient. See radiology reports. EKG without obvious ischemic changes, initial and subsequent troponins negative. Patient ambulatory in the room, improved, home with family. Further workup as an outpatient for now. Consider cardiac monitoring. Discharge Plan Departure Patient Disposition: Home Clinical Impression: Syncope, Dehydration, Diarrhea, Multiple pulmonary nodules, Neck strain Activity Restrictions/Additional Instructions: 74-year-old female was sitting on commode, recent loose stools, no black or red stools, no fevers, fell forward from the commode striking front of face, having neck pain and back pain and abdominal discomfort. Unclear if the abdominal discomfort is related to the recent stooling, overt might be a sequelae of the fall. CT scan head and face studies done without contrast, showed no injury patterns but did show arthritic change to the cervical spine. Your neurological exam seemed to reassuring, you seemed to have good function of your arms and legs. No obvious spinal cord injury suspected at this time. CT scanning was additionally performed using IV contrast, imaging of the chest abdomen and pelvis, which included the upper mid and lower spine, which were not described to have any significant injuries. There were incidental findings of small tiny pulmonary lung nodules, that will need further follow up in outpatient, incidentally noted. EKG and serial blood tests did not show evidence for heart attack at this time. It is possible you might have had syncope related to recent diarrhea if you might have had dehydration. It is possible to have syncope passing-out episode also in the act of urination and defecation itself, it might not be a risk factor for future syncope. There might be a different kind of syncope related to your heart rate or some other cause that might need some further workup as an outpatient for now. Consider cardiac monitoring for example to look for episodes of slow or fast heart beating that might lead to syncopal episodes. Sometimes echocardiogram ultrasound of the heart and other studies are done. Further workup as an outpatient for now. Follow up with your regular doctor early next week, to help arrange cardiac monitoring, further workup as an outpatient. Local contact information also given for local cardiology on-call if needed. Return earlier to this/nearest emergency department for any change worsening symptoms or any concerns prior Prescriptions: New methocarbamol 500 mg tablet 500 mg PO TID 7 Days Qty: 21 0RF No Action albuterol sulfate 90 mcg/actuation HFA aerosol inhaler 2 puff inhalation Q6H PRN (Reason: shortness of breath or wheezing) Qty: 6.7 0RF [VITAMIN D] Q DAY Qty: 0 atorvastatin 20 mg tablet 20 mg PO DAILY Qty: 90 0RF citalopram 40 mg tablet 40 mg PO DAILY Qty: 90 3RF hydrochlorothiazide 25 mg tablet 25 mg PO Q DAY Qty: 90 3RF melatonin 10 mg tablet 10 mg PO BEDTIME PRN (Reason: sleep) Qty: 1 0RF Rx Instructions: take 1 tab 2-3 hours prior to bedtime for sleep albuterol sulfate 90 mcg/actuation HFA aerosol inhaler 2 puff inhalation Q6H PRN (Reason: wheezing) Referrals: Joan Kimble MD [Primary Care Provider] - Meryl White MD [Physician] - Stand Alone Forms: Patient Portal/API
[2024-07-17 10:28] LABS: Add Manual Diff / Slide Review NO; Basophils Absolute Auto 100 /uL (0-100); Basophils Percent Auto 0.9 % (0-2); Eosinophils Absolute Auto 100 /uL (0-450); Eosinophils Percent Auto 2.1 % (2-4); Lymphocytes Absolute Auto 2700 /uL (1100-4500); Lymphocytes Percent Auto 39.8 % (25-40); Mean Corpuscular HGB Conc 33.3 % (30-36); Mean Corpuscular Volume 93.1 fL (80-100); Monocytes Absolute Auto 700 /uL (0-900); Monocytes Percent Auto 9.7 % (3-14); Neutrophils Absolute Auto 3200 /uL (1500-7000); Neutrophils Percent Auto 47.5 % (50-75); Platelet Count 278 X10^3/uL (150-400); Red Blood Cell Count 4.19 X10^6/uL (4.0-5.2); Red Cell Distribution Width 13.1 % (11.6-14.8); White Blood Cell Count 6.7 X10^3/uL (4.5-11.0)
--- NOTE | 2024-07-17 10:36 | PC.NURSE ---
Pt reports stomach issues for the past week. This morning pt ambulated to bathroom and was sitting on the toilet when she had a syncopal episode. Pt reports LOC and was nauseated briefly when she awoke. Denies nausea. Arrives by EMS with inflatable ccollar and on an inflatable vacuum spine board. She is alert and oriented x4. Denies change in vision. Pupils equal, round, reactive. Head pain with ecchymosis to her forehead and 1x small abrasion to bridge of her nose, no bleeding noted. C/O mid back pain and neck pain. Able to move bilateral upper extremities with no pain. Able to move feet with no pain. Endorses numbness to BLE. Feet are cold with strong pulses. Bilateral foot capillary refill >2 seconds. Pt wrapped in warm blankets. Pt's family arrives and is at bedside.
[2024-07-17 10:39] LABS: Alanine Aminotransferase 25 IU/L (<35); Albumin 4.1 g/dL (3.5-5.0); Albumin Globulin Ratio 1.1 (1.0-2.8); Alkaline Phosphatase 55 U/L (38-126); Aspartate Aminotransferase 36 IU/L (14-36); BUN Creatinine Ratio 23.5 (6-22); Bilirubin Total 0.6 mg/dL (0.2-1.3); Blood Urea Nitrogen 20 mg/dL (7-17); Calcium 9.7 mg/dL (8.4-10.2); Carbon Dioxide 30 mmol/L (22-32); Chloride 98 mmol/L (98-107); Creatine Kinase 98 U/L (30-135); Estimated Glomerular Filt Rate > 60 mL/min (>60); Globulin 3.7 g/dL (1.7-4.1); Glucose 147 mg/dL (80-110); HEMOLYSIS < 15 (0-50); Lipase 91 U/L (23-300); Potassium 3.4 mmol/L (3.4-5.1); Sodium 133 mmol/L (137-145); Total Protein 7.8 g/dL (6.3-8.2)
--- NOTE | 2024-07-17 10:44 | DI.CT.S_ITS ---
PROCEDURE: CT HEAD/BRAIN WO CON INDICATIONS: syncoipe, fell off toilet TECHNIQUE: Noncontrast 4.5 mm thick angled axial sections acquired from the foramen magnum to the vertex, with coronal and sagittal reformats. For radiation dose reduction, the following was used: automated exposure control, adjustment of mA and/or kV according to patient size. COMPARISON: None. FINDINGS: Image quality: Diagnostic. CSF spaces: Basal cisterns are patent. No extra-axial fluid collections. Ventricles are normal in size and shape. Brain: No midline shift. No intracranial masses or hemorrhage. Bob-white matter interface is normal. Age-appropriate atrophy and chronic ischemic change. Left 5 mm enlarged perivascular space para hippocampal cyst noted. Skull and face: Calvarium and visualized facial bones are intact, without suspicious lesions. Sinuses: Visualized sinuses and mastoids are clear. IMPRESSION: Age-appropriate atrophy without acute hemorrhage or mass effect. Approved by: Mani Pittman M.D. on 07/17/2024 at 10:26
--- NOTE | 2024-07-17 10:45 | DI.CT.S_ITS ---
PROCEDURE: CT CERVICAL SPINE WO CON INDICATIONS: neck pain after fall, syncope TECHNIQUE: Noncontrast 3 mm thick sections acquired from the skull base to the T4 level. Sagittal and coronal reformats were then constructed. For radiation dose reduction, the following was used: automated exposure control, adjustment of mA and/or kV according to patient size. COMPARISON: [facility], CT, CT HEAD/BRAIN WO CON, 07/17/2024, 10:54. FINDINGS: Image quality: This examination is somewhat limited by quantum mottle artifact. Bones: No fractures or dislocations. Visualized superior ribs are intact. There is [id number] disc space narrowing seen C3-C4, least moderate disc space narrowing seen at C4-C5 and C5-C6. There is moderate disc space narrowing seen C6-C7. At least moderate disc space narrowing can be seen at C7-T1. Post erected osteophytes are seen worst at C5-C6. Soft tissues: Prevertebral soft tissues are normal in thickness. No paravertebral hematomas. No apical pneumothoraces. IMPRESSION: Negative for cervical spine fracture. Multiple levels cervical spine degenerative change can be seen which are worst at C5-C6. Dictated by: Octavio Renteria M.D. on 07/17/2024 at 10:25 Approved by: cOtavio Renteria M.D. on 07/17/2024 at 10:27
--- NOTE | 2024-07-17 10:46 | DI.CT.S_ITS ---
PROCEDURE: CT CHEST ABD PEL W CON INDICATIONS: syncope, back pain abd pain TECHNIQUE: After the administration of intravenous contrast, 5 mm thick sections acquired from the lung apices to the symphysis. 5 mm coronal and sagittal reformats were performed, with additional 7 mm MIP reformats through the lungs. For radiation dose reduction, the following was used: automated exposure control, adjustment of mA and/or kV according to patient size. COMPARISON: None. FINDINGS: Image quality: Excellent. CHEST: Lower Neck: No enlarged lymph nodes. Thyroid: No thyroid nodules which require sonographic follow up, per consensus guidelines. Axillae: No enlarged lymph nodes. Chest Wall: Unremarkable. Lungs and Pleura: No pneumothorax or pleural effusions. Multiple solid pulmonary micro nodules. Index nodule measures 2 millimeters in the right upper lobe (series 6, image 155). Heart: Heart size is normal. No pericardial effusion. Thoracic Vessels: The aorta and pulmonary arteries demonstrate normal size. Mediastinum and Tatum: No enlarged lymph nodes. Esophagus: No wall thickening. No hiatal hernia. ABDOMEN: Liver: No solid mass. Gallbladder: No radiopaque gallstones or wall thickening. Biliary ducts: No biliary dilation. Pancreas: No ductal dilation. Spleen: Size is within normal limits. Adrenal Glands: No adrenal nodules. Kidneys and Ureters: No hydronephrosis. No solid mass. No complex renal cystic lesion which requires follow up. Punctate nonobstructing right-sided nephrolithiasis. Stomach and Bowel: Normal colonic caliber, without significant wall thickening. Peritoneum: No abnormal intraperitoneal fluid. No free air. Ventral Wall: No significant ventral hernia. Abdominal Nodes: No retroperitoneal or mesenteric adenopathy by size criteria. Vessels: Aorta and inferior vena cava are normal in size. PELVIS: Pelvic Organs: Unremarkable. Bladder: No bladder wall thickening, accounting for underdistention. Pelvic Nodes: No enlarged lymph nodes. Miscellaneous: No inguinal hernias are seen. Bones: No aggressive osseous abnormality. Degenerative disc disease of the lumbar spine. No significant spinal canal narrowing. IMPRESSION: No acute abnormality. No compression deformity. No significant spinal canal narrowing. Pulmonary micronodules. Consider 12 month follow-up if at high risk for developing lung cancer, per Fleischner Society guidelines. Dictated by: Best Babcock M.D. on 07/17/2024 at 11:38 Approved by: Best Babcock M.D. on 07/17/2024 at 11:44
[2024-07-17 10:51] LABS: Troponin I < 0.012 ng/mL (0.01-0.034)
[2024-07-17] MEDS: KETOROLAC 30 MG/ML VIAL 15 MG IV (10:59)
--- NOTE | 2024-07-17 11:16 | PC.NURSE ---
Delayed administration of IV fluids due to Provider verbal order to hold giving IV fluids until CT imaging reports finalize and orthostatic vital signs are obtained.
--- NOTE | 2024-07-17 11:51 | EKG_ITS ---
[address] [address] [address], [place] [address] Test Date: 2024-07-17 Pat Name: Yuliet Edwards Department: [facility] Room: Gender: Female Jira Developer: SYL : 1950 Requested By: Order Number: [id number] Reading MD: Kali Ingram MD Measurements Intervals [place] Rate: 59 P: 48 [place]: 178 QRS: 18 QRSD: 92 T: 28 QT: 484 QTc: 479 Interpretive Statements Sinus bradycardia Left ventricular hypertrophy with repolarization abnormality ( Alleene product ) Electronically Signed On 07-18-2024 17:35:51 PDT by Kali Ingram MD
[2024-07-17 12:57] LABS: Troponin I < 0.012 ng/mL (0.01-0.034)
[2024-07-17] MEDS: SODIUM CHLORIDE 0.9% 1,000 ML 500 ML IV (13:25)
[2024-07-17 13:34] LABS: Appearance Urine UA CLEAR; Bilirubin Urine UA NEGATIVE (NEGATIVE); Color Urine UA YELLOW; Glucose Urine UA NEGATIVE (Negative); Ketones Urine UA NEGATIVE (NEGATIVE); Leukocyte Esterase Urine UA NEGATIVE (NEGATIVE); Nitrite Urine UA NEGATIVE (Negative); Occult Blood Urine UA NEGATIVE (Negative); Protein Urine UA NEGATIVE (Negative); Specific Gravity Urine UA <=1.005 (1.000-1.035); Urobilinogen Urine UA 0.2 E.U./dL (0.2)
[2024-07-17 13:36] LABS: pH Urine UA 8.5 (4.5-8.0)
[2024-07-17 13:44] LABS: Bacteria Urine None Seen; RBC Urine None Seen (0-5/HPF); Urine Volume 10mL (spun); WBC Urine None Seen (0-5/HPF)
[2024-07-17 13:45] LABS: Culture Indicated Urine Cult Not Indicated; Squamous Epithelial Cell Urine 0-1 /HPF (0-5/HPF)
== END 2024-07-17 15:31 | disposition home or self-care (01) ==
PROVIDERS: Emergency Provider Emergency Medicine; PCP Family Medicine; Referring Provider Emergency Medicine
DX: R55 Syncope and collapse (principal); S16.1XXA Strain of muscle, fascia and tendon at neck level, initial encounter; M54.6 Pain in thoracic spine; S09.93XA Unspecified injury of face, initial encounter; R07.9 Chest pain, unspecified; R00.1 Bradycardia, unspecified; E86.0 Dehydration; R19.7 Diarrhea, unspecified; R91.8 Other nonspecific abnormal finding of lung field; W18.11XA Fall from or off toilet without subsequent striking against object, initial encounter
CPT/HCPCS: 36415; 70450; 71045; 71260; 72125; 74177; 80053; 81001; 82550; 83690; 84484; 85025; 93005; 93010; 96361; 96374; 99285; J1885; Q9967

== ENCOUNTER → 2024-07-27 14:34 | Outpatient (CLI) | payer MEDICARE, OTHER, SELFPAY ==
[2024-07-27 15:47] LABS: Blood Urea Nitrogen 16 mg/dL (7-17); Calcium 10.1 mg/dL (8.4-10.2); Carbon Dioxide 32 mmol/L (22-32); Chloride 98 mmol/L (98-107); Estimated Glomerular Filt Rate > 60 mL/min (>60); Glucose 99 mg/dL (80-110); HEMOLYSIS < 15 (0-50); Potassium 3.8 mmol/L (3.4-5.1); Sodium 133 mmol/L (137-145)
== END ==
PROVIDERS: PCP Family Medicine; Referring Provider Family Medicine; Visit Provider Family Medicine
DX: E87.1 Hypo-osmolality and hyponatremia (principal)
CPT/HCPCS: 80048

== ENCOUNTER → 2024-09-16 09:11 | Outpatient (CLI) | payer MEDICARE, OTHER, SELFPAY ==
--- NOTE | 2024-09-16 09:30 | DI.ECHO.S_ITS ---
[facility]+ [facility] : : [id number] : [place] : : [id number] : : Phone: [phone] Echocardiogram Report + + :Name: DANIEL ROSA Study Date: 09/16/2024 Height: 62 in : :[facility] ReadingLocation: Weight: 148 lb : : Gender: Female BSA: 1.7 m2 : :: 1950 Age: 74 yrs BP: 140/88 mmHg: :Reason For Study: SYNCOPE : :Ordering Physician: JASWANT, : :TROY Performed By: Katherine Brito : :Referring: TROY MICHAUD : + + Interpretation Summary 1) Normal left ventricular thickness, size, wall motion, and systolic function (EF 55-60%). 2) Normal right ventricular size and function. 3) No significant valvular abnormalities. 4) No prior Echo available for comparison. Procedure: A two-dimensional transthoracic echocardiogram with color flow and Doppler was performed. The study quality was technically adequate. Comparison is made with the echocardiogram of 10/20/2013. The patient was in sinus bradycardia with heart rates between 57-61 bpm during the exam. Left Ventricle: The left ventricle is normal in size. Left ventricular wall thickness is normal. Proximal septal thickening is noted. The ejection fraction is estimated to be 55-60%. Left ventricular systolic function appears normal without focal wall motion abnormalities. Right Ventricle: The right ventricle is normal in size and function. Atria: The left atrial size is normal. Right atrial size is normal. Mitral Valve: The mitral valve leaflets appear to open well. There is no evidence of mitral valve prolapse. There is trace mitral regurgitation. Aortic Valve: The aortic valve is trileaflet. The aortic valve is slightly calcified. The aortic valve opens well. There is no aortic valve stenosis. No aortic regurgitation is present. Tricuspid Valve: The tricuspid valve leaflets are thin and pliable. There is mild tricuspid regurgitation. The right ventricular systolic pressure is estimated to be at least 21 mmHg based on an estimated right atrial pressure of 3 mm Hg. Pulmonic Valve: The pulmonic valve is not well seen, but is grossly normal. There is mild pulmonic regurgitation. Great Vessels: The aortic root is normal size. The dimensions of the ascending aorta are normal. The IVC is of normal diameter and collapses greater than 50% with a sniff. This suggests a low right atrial pressure of 3 mm Hg. Pericardium/ Pleura There is no pericardial effusion. There is no pleural effusion. MMode/2D Measurements & Calculations LVIDd: 4.1 cm LVOT diam: 1.9 cm LVIDs: 2.7 cm Ao root diam: 3.0 cm FS: 34.7 % asc Aorta Diam: 3.1 cm EPSS: 0.64 cm Ao Arch Diam (Prox Trans): 2.4 cm IVSd: 1.1 cm LVPWd: 0.73 cm LV evans. diameter/BSA (cm/m^2): 2.5 LV sys. diameter/BSA (cm/m^2): 1.6 LA A2 area: 17.3 cm2 RA long axis: 4.6 cm LA A4 area: 13.1 cm2 RA area: 11.3 cm2 LA length (vol): 5.2 cm RA vol: 23.5 ml LA vol: 36.9 ml RA : 14.0 ml/m2 LA vol index: 21.9 ml/m2 IVC diam: 1.3 cm RVD1 (basal): 3.7 cm RVD2 (mid): 3.1 cm TAPSE: 1.8 cm Doppler Measurements & Calculations Ao V2 max: 113.1 cm/sec LVOT Max Ernesto: 75.3 cm/sec Ao V2 mean: 80.4 cm/sec LV V1 max P.3 mmHg Ao max P.1 mmHg LV V1 VTI: 19.1 cm Ao mean P.9 mmHg HAILEY(I,D): 1.8 cm2 Ao V2 VTI: 28.1 cm HAILEY(V,D): 1.8 cm2 sev ratio: 0.68 HAILEY indexed to BSA (cm^2/m^2): 1.1 MV E max ernesto: 76.0 cm/sec TR max ernesto: 212.5 cm/sec MV A max ernesto: 69.0 cm/sec TR max P.1 mmHg MV E/A: 1.1 PA V2 max: 76.8 cm/sec Med Peak E' Ernesto: 7.1 cm/sec PA V2 mean: 54.7 cm/sec E/E' med: 10.7 PA mean P.3 mmHg Lat Peak E' Ernesto: 8.8 cm/sec PA pr(Accel): 29.3 mmHg E/E' lat: 8.6 E/e' average: 9.6 MV dec time: 0.21 sec MVA(VTI): 2.0 cm2 MV V2 mean: 42.7 cm/sec SV(LVOT): 51.5 ml MV mean P.97 mmHg MV V2 VTI: 26.1 cm Reading Physician:01:29 PM
== END ==
PROVIDERS: PCP Family Medicine; Referring Provider Family Medicine; Visit Provider Family Medicine
DX: R55 Syncope and collapse (principal); I07.1 Rheumatic tricuspid insufficiency
CPT/HCPCS: 93306

== ENCOUNTER → 2024-10-22 08:40 | Outpatient (CLI) | payer MEDICARE, OTHER, SELFPAY ==
[2024-10-22 10:03] LABS: COVID-19 CEPHEID 4-PLEX PCR Negative (Negative); Influenza A - CEPHEID Flu A NEGATIVE (NEGATIVE); Influenza B - CEPHEID Flu B NEGATIVE (NEGATIVE); Respiratory Syncytial Virus Negative (Negative)
== END ==
PROVIDERS: PCP Family Medicine; Visit Provider Nurse Practitioner Family
DX: R05.1 Acute cough (principal); J02.9 Acute pharyngitis, unspecified
CPT/HCPCS: 0241U; 87070

== ENCOUNTER → 2025-05-12 07:18 | Outpatient (CLI) | payer MEDICARE, OTHER, SELFPAY ==
[2025-05-12 08:15] LABS: Alanine Aminotransferase 24 IU/L (<35); Albumin 4.0 g/dL (3.5-5.0); Albumin Globulin Ratio 1.2 (1.0-2.8); Alkaline Phosphatase 49 U/L (38-126); Blood Urea Nitrogen 16 mg/dL (7-17); Calcium 9.4 mg/dL (8.4-10.2); Carbon Dioxide 27 mmol/L (22-32); Chloride 105 mmol/L (98-107); Cholesterol 210 mg/dL (140-199); Estimated Glomerular Filt Rate > 60 mL/min (>60); Globulin 3.3 g/dL (1.7-4.1); Glucose 110 mg/dL (70-99); HDL Cholesterol 72 mg/dL (40-60); HEMOLYSIS < 15 (0-50); Potassium 4.5 mmol/L (3.4-5.1); Sodium 139 mmol/L (137-145); Total Protein 7.3 g/dL (6.3-8.2); Triglycerides 80 mg/dL (35-150)
[2025-05-12 09:42] LABS: Microalbumi Creatinin Ratio Ur 5.0 ug/mg CR (<30)
== END ==
PROVIDERS: PCP Family Medicine; Referring Provider Family Medicine; Visit Provider Family Medicine
DX: I10 Essential (primary) hypertension (principal)
CPT/HCPCS: 36415; 80053; 80061; 82043; 82570

== ENCOUNTER → 2025-06-30 16:04 | Outpatient (CLI) | payer MEDICARE, OTHER, SELFPAY ==
--- NOTE | 2025-06-30 16:06 | DI.RAD.S_ITS ---
PROCEDURE: XR CHEST 2V INDICATIONS: Cough TECHNIQUE: 2 views of the chest were acquired. COMPARISON: [facility], CR, XR CHEST 1V, 07/17/2024, 10:27. [facility], CR, XR CHEST 2V, 08/12/2023, 18:09. FINDINGS: Surgical changes and devices: None. Lungs and pleura: Lungs are clear. No pleural effusions or pneumothorax. Mediastinum: Mediastinal contours are normal. Heart size is normal. Bones and chest wall: No suspicious bony abnormalities. Soft tissues appear unremarkable. IMPRESSION: No acute cardiopulmonary abnormality is seen. Dictated by: Andi Longoria M.D. on 07/01/2025 at 9:07 Approved by: Andi Longoria M.D. on 07/01/2025 at 9:08
== END ==
PROVIDERS: PCP Family Medicine; Referring Provider Nurse Practitioner Family; Visit Provider Nurse Practitioner Family
DX: R05.9 Cough, unspecified (principal)
CPT/HCPCS: 71046; 87070; 87637